=== PATIENT | male | born 1980 | race American Indian/Alaskan Native ===

== ENCOUNTER 2016-06-04 08:08 | Emergency (ER) | payer SELFPAY ==
[2016-06-04 09:36] LABS: Basophils % (Auto) 0.7 % (0.0-1.8); Eosinophils % (Auto) 3.2 % (0.0-4.3); Hematocrit 53.1 % (35.5-45.6); Mean Corpuscular HGB Conc 34 % (32-34); Mean Corpuscular Hemoglobin 32 pg (28-32); Mean Corpuscular Volume 96 fl (84-94); Platelet Count 216 K/mm3 (140-440); Red Blood Count 5.55 M/mm3 (3.65-5.03); Red Cell Distribution Width 14.9 % (13.2-15.2); White Blood Count 8.3 K/mm3 (4.5-11.0)
[2016-06-04 09:47] LABS: Anion Gap 21 mmol/L; Blood Urea Nitrogen 8 mg/dL (9-20); Calcium 9.2 mg/dL (8.4-10.2); Carbon Dioxide 24 mmol/L (22-30); Chloride 98.2 mmol/L (98-107); Glucose 85 mg/dL (75-100); Potassium 4.4 mmol/L (3.6-5.0); Sodium 139 mmol/L (137-145)
[2016-06-04] MEDS ORDERED: PEPCID PO ONE (18:00)
[2016-06-04] MEDS ORDERED: ALUM-MAG HYDROX-SIMETH 200-200-20MG/5ML PO ONE (18:00)
--- NOTE | 2016-06-04 18:00 | Emergency Department Report ---
ED General Adult HPI - General Chief complaint: Chest Pain Stated complaint: SWELLING IN NECK AND HEAD/POSS INFECTION/ Time Seen by Provider: 06/04/16 17:52 Source: patient, RN notes reviewed, old records reviewed Mode of arrival: Ambulatory Limitations: No Limitations - History of Present Illness Initial comments: This is a 35-year-old male. I have evaluated him in the past. Reports a past medical history of seizure disorder. Not currently on antiepileptic drugs. Does not have a primary care doctor. Reports chronic tobacco use. Presents to the ER with 2 complaints. The first complaint is epigastric chest pain. It was present 2 days ago. It is not associated with nausea, vomiting or diaphoresis. There is no shortness of breath. Does not radiate to the back, arms or neck. Lasted for 10 minutes. No exacerbating or relieving factors. No recent trips greater than 4 hours, there is no lower extremity pain, there is no lower extremity swelling. No recent aspirin use. Recreational cocaine use. The second complaint is painful lumps on his scalp. These have been present for 4 months. They're not getting any bigger. Increased with palpation, decreased with rest. -: Gradual Location: head, chest Radiation: non-radiation Quality: aching Consistency: intermittent Improves with: other (as per hpi) Worsens with: other (as per hpi) Associated Symptoms: other (as per hpi) - Related Data Previous Rx's Medication Instructions Recorded Last Taken Type Azithromycin [Zithromax Z-AZALEA] 250 mg PO DAILY #6 tablet 04/05/14 Unknown Rx Promethazine /Codeine 5 ml PO Q6H PRN #40 ml 04/05/14 Unknown Rx [Phenergan/Codeine 6.25-10 mg/5 ml] Pantoprazole [Protonix TAB] 40 mg PO QDAY #14 tablet 06/04/16 Unknown Rx Allergies Allergy/AdvReac Type Severity Reaction Status Date / Time No Known Allergies Allergy Verified 01/09/15 11:04 ED Review of Systems ROS: Stated complaint: SWELLING IN NECK AND HEAD/POSS INFECTION/ Other details as noted in HPI Constitutional: denies: fever Eyes: denies: eye discharge ENT: denies: epistaxis Respiratory: denies: cough Cardiovascular: chest pain Gastrointestinal: denies: vomiting Genitourinary: denies: dysuria Musculoskeletal: denies: back pain Skin: lesions Neurological: denies: headache ED Past Medical Hx - Past Medical History Previous Medical History?: Yes Hx Seizures: Yes (UNTIL HE WAS 6 YO) - Surgical History Past Surgical History?: No - Social History Smoking Status: Current Every Day Smoker Substance Use Type: Alcohol, Marijuana - Medications Home Medications: Home Medications Medication Instructions Recorded Confirmed Last Taken Type Azithromycin [Zithromax Z-AZALEA] 250 mg PO DAILY #6 tablet 04/05/14 Unknown Rx Promethazine /Codeine 5 ml PO Q6H PRN #40 ml 04/05/14 Unknown Rx [Phenergan/Codeine 6.25-10 mg/5 ml] Pantoprazole [Protonix TAB] 40 mg PO QDAY #14 tablet 06/04/16 Unknown Rx ED Physical Exam - General Limitations: No Limitations General appearance: alert, in no apparent distress - Head Head exam: Present: atraumatic, normocephalic, other (on the occipital scalp region, there are 2 areas of circumscribed induration, which are nonfluctuant, nonerythematous, minimally tender. These have been present for 4 months. There is no streaking. There is no crepitus.) - Eye Eye exam: Present: normal appearance - ENT ENT exam: Present: normal exam, normal orophraynx, mucous membranes moist, normal external ear exam - Neck Neck exam: Present: normal inspection, full ROM. Absent: tenderness, meningismus - Respiratory Respiratory exam: Present: normal lung sounds bilaterally. Absent: respiratory distress, wheezes, rales, rhonchi, stridor, decreased breath sounds - Cardiovascular Cardiovascular Exam: Present: regular rate, normal rhythm, normal heart sounds. Absent: bradycardia, tachycardia, irregular rhythm, systolic murmur, diastolic murmur, rubs, gallop - GI/Abdominal GI/Abdominal exam: Present: soft, normal bowel sounds. Absent: distended, tenderness, guarding, rebound, rigid, pulsatile mass - Rectal Rectal exam: Present: deferred - Extremities Exam Extremities exam: Present: normal inspection, full ROM, normal capillary refill. Absent: tenderness, pedal edema, joint swelling, calf tenderness - Back Exam Back exam: Present: normal inspection, full ROM. Absent: tenderness, CVA tenderness (R), CVA tenderness (L), muscle spasm, paraspinal tenderness, vertebral tenderness - Neurological Exam Neurological exam: Present: alert, oriented X3, normal gait, other (Extraocular movements intact. Tongue midline. No facial droop. Facial sensation intact to light touch in the V1, V2, V3 distribution bilaterally. 5 and 5 strength in 4 extremities.. Sensation is intact to light touch in 4 extremities.). Absent : motor sensory deficit - Psychiatric Psychiatric exam: Present: normal affect, normal mood - Skin Skin exam: Present: warm, dry, intact, normal color. Absent: rash, erythema ED Course Vital Signs 06/04/16 06/04/16 08:44 18:17 Temperature 98.0 F 98.7 F Pulse Rate 84 89 Respiratory 18 18 Rate Blood Pressure 126/84 Blood Pressure 134/94 [Left] O2 Sat by Pulse 99 99 Oximetry - Reevaluation(s) Reevaluation #1: 06/04/16 19:15 Differential diagnosis: GERD, gastritis, costochondritis, reflux, pneumonia, scalp induration Assessment and plan: 35-year-old male with 2 complaints. Chest pain atypical, present for 48 hours, no pulmonary embolus or DVT risk factors, low risk by heart score, low risk by ARI score, low risk by well's criteria, perc negative. Troponin negative multiple times, EKG morphologically unremarkable, patient appears to be at low risk for major adverse cardiac event. He is instructed to discontinue cocaine consumption and tobacco consumption, he is suitable to follow up with an outpatient primary care doctor or photo technologist for this. Appears to have chronically indurated scalp lesions, I believe these will improve with warm compresses. I see no indication for systemic antibiotic therapy at this time. Patient has been seen in the past for evaluation of possible upper GI bleed, he reports not following up with gastroenterology, therefore I will not initiate insulin therapy. Denies hematemesis, bright red blood per rectum. ED Medical Decision Making - Lab Data Result diagrams: 06/04/16 09:13 06/04/16 09:13 Vital Signs 06/04/16 06/04/16 08:44 18:17 Temperature 98.0 F 98.7 F Pulse Rate 84 89 Respiratory 18 18 Rate Blood Pressure 126/84 Blood Pressure 134/94 [Left] O2 Sat by Pulse 99 99 Oximetry Lab Results 06/04/16 06/04/16 06/04/16 Range/Units 09:13 09:13 11:47 WBC 8.3 (4.5-11.0) K/mm3 RBC 5.55 H (3.65-5.03) M/mm3 Hgb 18.0 H (11.8-15.2) gm/dl Hct 53.1 H (35.5-45.6) % MCV 96 H (84-94) fl MCH 32 (28-32) pg MCHC 34 (32-34) % RDW 14.9 (13.2-15.2) % Plt Count 216 (140-440) K/mm3 Lymph % (Auto) 24.0 (13.4-35.0) % Chase % (Auto) 9.7 H (0.0-7.3) % Eos % (Auto) 3.2 (0.0-4.3) % Baso % (Auto) 0.7 (0.0-1.8) % Lymph # 2.0 (1.2-5.4) K/mm3 Chase # 0.8 (0.0-0.8) K/mm3 Eos # 0.3 (0.0-0.4) K/mm3 Baso # 0.1 (0.0-0.1) K/mm3 Seg Neutrophils % 62.4 (40.0-70.0) % Seg Neutrophils # 5.2 (1.8-7.7) K/mm3 Sodium 139 (137-145) mmol/L Potassium 4.4 (3.6-5.0) mmol/L Chloride 98.2 (98-107) mmol/L Carbon Dioxide 24 (22-30) mmol/L Anion Gap 21 mmol/L BUN 8 L (9-20) mg/dL Creatinine 1.0 (0.8-1.5) mg/dL Estimated GFR > 60 ml/min BUN/Creatinine Ratio 8.00 % Glucose 85 (75-100) mg/dL Calcium 9.2 (8.4-10.2) mg/dL Troponin T < 0.010 < 0.010 (0.00-0.029) ng/mL 06/04/16 Range/Units 14:39 WBC (4.5-11.0) K/mm3 RBC (3.65-5.03) M/mm3 Hgb (11.8-15.2) gm/dl Hct (35.5-45.6) % MCV (84-94) fl MCH (28-32) pg MCHC (32-34) % RDW (13.2-15.2) % Plt Count (140-440) K/mm3 Lymph % (Auto) (13.4-35.0) % Chase % (Auto) (0.0-7.3) % Eos % (Auto) (0.0-4.3) % Baso % (Auto) (0.0-1.8) % Lymph # (1.2-5.4) K/mm3 Chase # (0.0-0.8) K/mm3 Eos # (0.0-0.4) K/mm3 Baso # (0.0-0.1) K/mm3 Seg Neutrophils % (40.0-70.0) % Seg Neutrophils # (1.8-7.7) K/mm3 Sodium (137-145) mmol/L Potassium (3.6-5.0) mmol/L Chloride (98-107) mmol/L Carbon Dioxide (22-30) mmol/L Anion Gap mmol/L BUN (9-20) mg/dL Creatinine (0.8-1.5) mg/dL Estimated GFR ml/min BUN/Creatinine Ratio % Glucose (75-100) mg/dL Calcium (8.4-10.2) mg/dL Troponin T < 0.010 (0.00-0.029) ng/mL - EKG Data 06/04/16 19:21 EKG #1 demonstrates normal sinus, 86 bpm, normal intervals, normal axis, not morphologically consistent with STEMI. EKG #2 demonstrates normal sinus, 88 bpm, normal intervals, normal axis, not morphologically consistent with STEMI. - Radiology Data Radiology results: image reviewed interpreted by me: X-ray of the chest is negative for acute disease Critical care attestation.: If time is entered above; I have spent that time in minutes in the direct care of this critically ill patient, excluding procedure time. ED Disposition Clinical Impression: Chest pain Disposition: DISCHARGED TO HOME OR SELFCARE Is pt being admited?: No Does the pt Need Aspirin: No Condition: Stable Instructions: Chest Pain (ED) Additional Instructions: Discontinued consumption of cocaine and tobacco products. These are not healthy fever. Avoid heavy and spicy foods. Follow up with either Dr. López, a local primary care doctor, or Dr. Galindo, a local photo technologist, within the next 3-5 days. Apply warm compresses to the scalp lesions. Take acetaminophen , 650 mg, which can be purchased [id number], every 3-6 hours as needed for pain. Return to the ER right away with new pain, worsening pain, migration of pain, fevers or chills, intractable nausea or vomiting, inability to tolerate liquid feeds. Prescriptions: Pantoprazole [Protonix TAB] 40 mg PO QDAY #14 tablet Referrals: PRIMARY CAREMD [Primary Care Provider] - 3-5 Days ANDRZEJ LÓPEZ MD [Staff Physician] - 3-5 Days MELISSA GALINDO MD [Staff Physician] - 3-5 Days
[2016-06-04 18:18] VITALS: BP 134/94
--- NOTE | 2016-06-05 07:47 | XRay Report ---
Chest 2 views: Compared to 01/09/15. History: Chest pain. Findings: Normal cardiomediastinal silhouette. Trachea is midline. No consolidation, pneumothorax or pleural effusion. Impression: No acute cardiopulmonary findings.
== END 2016-06-04 19:45 | disposition home or self-care (01) ==
LOC: ED 08:08
DX: R07.89 Other chest pain (principal); R56.9 Unspecified convulsions; F17.200 Nicotine dependence, unspecified, uncomplicated; F12.10 Cannabis abuse, uncomplicated
CPT/HCPCS: 36415; 71020; 80048; 84484; 85025; 93005; 93010; 99285